=== PATIENT | female | born 1970 | race Hispanic/Latino ===

== ENCOUNTER → 2021-09-27 | Day surgery (SDC) | payer OTHER ==
[~2021-09-27] MED LIST: ACETAMINOPHEN 1000 MG/100 ML 100 ML IV ONE; FENTANYL CITRATE/PF 100MCG/2 ML INJ ONE; GLIPIZIDE ER5 MG PO; HYOSCYAMINE SULFATE 0.5 MG/ML INJ ONE; LIDOCAINE HCL 2% LOCAL INJ 5 ML SDV VIAL INJ ONE; LIPITOR10 MG PO; METFORMIN HCL500 MG PO; METOCLOPRAMIDE HCL 10 MG/2ML VIAL ONE; MIDAZOLAM HCL 2 MG/2 ML VIAL ONE; POVIDONE IODINE 0.05% 0.05 % ML PO ONE; PROPOFOL IV EMULSION 10 MG/ML 20 ML VIAL ONE
[2021-09-27 12:15] VITALS: BP 117/72
== END | disposition home or self-care (01) ==
LOC: OR 08:19
PROVIDERS: ATTEND Internal Medicine Gastroenterology
DX: K29.50 Unspecified chronic gastritis without bleeding (principal); K63.5 Polyp of colon; B96.81 Helicobacter pylori [H. pylori] as the cause of diseases classified elsewhere; K20.90 Esophagitis, unspecified without bleeding; K21.9 Gastro-esophageal reflux disease without esophagitis; K59.09 Other constipation; K64.8 Other hemorrhoids; Z71.3 Dietary counseling and surveillance; E11.9 Type 2 diabetes mellitus without complications; I10 Essential (primary) hypertension; E78.00 Pure hypercholesterolemia, unspecified; Z01.810 Encounter for preprocedural cardiovascular examination; Z01.812 Encounter for preprocedural laboratory examination; Z20.822 Contact with and (suspected) exposure to COVID-19; Z79.84 Long term (current) use of oral hypoglycemic drugs; Z79.899 Other long term (current) drug therapy; Z68.31 Body mass index [BMI] 31.0-31.9, adult
CPT/HCPCS: 36415; 43239; 45378; 45380; 81025; 82948; 93005; J1980; J2001; J2250; J2765; J3010

== ENCOUNTER → 2024-09-21 | Day surgery (SDC) | payer BC, OTHER ==
[~2024-09-21] MED LIST changes: -ACETAMINOPHEN 1000 MG/100 ML 100 ML IV ONE; +ASHWAGANDHA300 MG; +COLLAGEN 15001 EACH; +DICYCLOMINE HCL10 MG PO; -HYOSCYAMINE SULFATE 0.5 MG/ML INJ ONE; -METOCLOPRAMIDE HCL 10 MG/2ML VIAL ONE; -MIDAZOLAM HCL 2 MG/2 ML VIAL ONE; +NEURONTIN100 MG PO; +ONDANSETRON HCL INJ 2MG/ML 2ML 2 MG/ML VIAL ONE; +OZEMPIC2 MG/0.75; -POVIDONE IODINE 0.05% 0.05 % ML PO ONE; +PRAVASTATIN SOD10 MG PO; -PROPOFOL IV EMULSION 10 MG/ML 20 ML VIAL ONE; +PROPOFOL IV EMULSION 50 ML IV ONE; +VITAMIN B-121000 MC4; +VITAMIN C1000 MG PO; +VITAMIN D31250 MCG
[2024-09-21] MEDS: LACTATED RINGER'S 1,000 ML ONE (06:12)
[2024-09-21 07:38] VITALS: TEMP 97.7
[2024-09-21 08:08] VITALS: BP 122/70; PULSE 69; RESP 16; O2SAT 97
[2024-09-26 07:13] LABS: ENDOMYSIAL ANTIBODIES, IGA Negative (Negative)
[2024-09-26 10:22] LABS: IMMUNOGLOBULIN A 283 mg/dL (87-352); TISSUE TRANSGLUTAMINASE IGA AB <2 U/mL (0-3)
== END | disposition home or self-care (01) ==
LOC: OR 05:22
PROVIDERS: ATTEND Internal Medicine Gastroenterology
DX: K29.50 Unspecified chronic gastritis without bleeding (principal); K31.89 Other diseases of stomach and duodenum; K20.90 Esophagitis, unspecified without bleeding; R15.2 Fecal urgency; Z86.0100 Personal history of colon polyps, unspecified; E11.9 Type 2 diabetes mellitus without complications; E78.5 Hyperlipidemia, unspecified; Z71.89 Other specified counseling; Z79.84 Long term (current) use of oral hypoglycemic drugs; Z79.85 Long-term (current) use of injectable non-insulin antidiabetic drugs; Z79.899 Other long term (current) drug therapy; Z68.29 Body mass index [BMI] 29.0-29.9, adult; Z71.3 Dietary counseling and surveillance; Z86.19 Personal history of other infectious and parasitic diseases
CPT/HCPCS: 36415; 43239; 82784; 82948; 83516; 86256; 93005; J2003; J2405; J2470; J2704; J3010; J7121

== ENCOUNTER → 2024-10-19 | Outpatient (REF) | payer BC, OTHER ==
[~2024-10-19] MED LIST changes: -FENTANYL CITRATE/PF 100MCG/2 ML INJ ONE; -LIDOCAINE HCL 2% LOCAL INJ 5 ML SDV VIAL INJ ONE; -ONDANSETRON HCL INJ 2MG/ML 2ML 2 MG/ML VIAL ONE; -PROPOFOL IV EMULSION 50 ML IV ONE
== END ==
LOC: US 07:48
PROVIDERS: ATTEND Nurse Practitioner
DX: R10.84 Generalized abdominal pain (principal); R19.7 Diarrhea, unspecified; K29.60 Other gastritis without bleeding
CPT/HCPCS: 76700; 76856